=== PATIENT | male | born 1950 | race Caucasian/White ===

== ENCOUNTER 2018-11-17 19:54 | Observation (INO) ==
[2018-11-17 20:32] LABS: Basophils # 0.1 10*3/uL (0.0-0.2); Basophils % 0.8 % (0.0-0.8); Eosinophils # 0.3 10*3/uL (0.0-0.87); Eosinophils % 2.9 % (0.00-10.9); Hematocrit 37.7 VOL% (42.0-52.0); Hemoglobin 11.6 GM/DL (14.0-18.0); Immature Granulocytes % 0.7 %; Immature Granulocytes Absolute 0.06 #; Lymphocytes # 2.3 10*3/uL (1.4-4.0); Lymphocytes % 27.2 % (21.2-54.2); Mean Corpuscular HGB Conc 30.8 GM/DL (32-36); Mean Corpuscular Volume 91.5 FL (87-102); Monocytes % 8.5 % (1.7-12.7); Neutrophils % 59.9 % (38.7-73.9); Platelet Count 215 T/CUMM (130-400); Red Blood Count 4.12 MC/CUMM (3.8-5.5); Red Cell Distribution Width 13.7 % (9.3-17.3); White Blood Count 8.5 T/CUMM (4-12)
[2018-11-17 20:49] LABS: Alanine Aminotransferase < 9 U/L (16-61); Alkaline Phosphatase 116 U/L (45-117); Aspartate Amino Transferase 9 U/L (0-37); Blood Urea Nitrogen 43 MG/DL (7-18); Calcium 8.6 MG/DL (8.5-10.1); Glucose 243 MG/DL (74-106); Osmolality,Calculated 293.7 MOS/KG (273-304); Total Protein 6.3 G/DL (6.4-8.3)
[2018-11-17] MEDS ORDERED: ONDANSETRON 4 MG/2 ML VIAL IV PRN (23:24)
[2018-11-17] MEDS ORDERED: SODIUM CHLORIDE 0.9% 1,000 ML IV SCH (23:24)
[2018-11-17] MEDS ORDERED: DEXTROSE 50% 25 GM/50 ML VIAL IV PRN (23:24)
[2018-11-17] MEDS ORDERED: GLUCAGON 1 MG VIAL IM PRN (23:24)
[2018-11-17] MEDS ORDERED: ACETAMINOPHEN 325 MG TABLET PO PRN (23:24)
[2018-11-17] MEDS: ENOXAPARIN 40 MG/0.4 ML SYRINGE SUBCUT SCH (23:38)
[2018-11-17] MEDS: CIPROFLOXACIN 500 MG TABLET PO SCH (23:38)
[2018-11-17] MEDS: INSULIN LISPRO 100 UNIT/ML SUBCUT SCH (23:46)
[2018-11-18] MEDS ORDERED: [UNRECOGNIZED DRUG - OTHER] IV SCH (05:00)
[2018-11-18 05:31] LABS: Basophils # 0.1 10*3/uL (0.0-0.2); Eosinophils # 0.3 10*3/uL (0.0-0.87); Eosinophils % 3.3 % (0.00-10.9); Hematocrit 35.5 VOL% (42.0-52.0); Immature Granulocytes % 0.6 %; Immature Granulocytes Absolute 0.05 #; Lymphocytes # 2.9 10*3/uL (1.4-4.0); Lymphocytes % 36.8 % (21.2-54.2); Mean Platelet Volume 10.1 FL (9.6-12.0); Monocytes % 8.7 % (1.7-12.7); Neutrophils % 49.6 % (38.7-73.9); Platelet Count 202 T/CUMM (130-400); Red Blood Count 3.86 MC/CUMM (3.8-5.5); Red Cell Distribution Width 13.9 % (9.3-17.3)
[2018-11-18 05:55] LABS: Calcium 8.5 MG/DL (8.5-10.1); Osmolality,Calculated 290.5 MOS/KG (273-304)
[2018-11-18] MEDS: INSULIN LISPRO 100 UNIT/ML SUBCUT SCH ×4 (09:16→20:33)
[2018-11-18] MEDS: ATORVASTATIN 40 MG TABLET PO SCH (09:17)
[2018-11-18] MEDS: INSULIN GLARGINE 100 UNIT/ML SUBCUT SCH (09:17)
[2018-11-18] MEDS: ASPIRIN EC 81 MG TABLET PO SCH (09:17)
[2018-11-18] MEDS: CIPROFLOXACIN 500 MG TABLET PO SCH ×2 (09:17→20:53)
[2018-11-18] MEDS: TAMSULOSIN 0.4 MG CAPSULE PO SCH (09:18)
[2018-11-18] MEDS: SODIUM CHLORIDE 0.9% 1,000 ML IV SCH ×2 (09:20→20:53)
[2018-11-18] MEDS: ENOXAPARIN 40 MG/0.4 ML SYRINGE SUBCUT SCH (20:53)
[2018-11-19 06:04] LABS: Basophils # 0.1 10*3/uL (0.0-0.2); Basophils % 0.9 % (0.0-0.8); Eosinophils # 0.3 10*3/uL (0.0-0.87); Eosinophils % 3.3 % (0.00-10.9); Hematocrit 37.3 VOL% (42.0-52.0); Hemoglobin 11.6 GM/DL (14.0-18.0); Immature Granulocytes % 0.9 %; Immature Granulocytes Absolute 0.07 #; Lymphocytes # 2.2 10*3/uL (1.4-4.0); Lymphocytes % 29.4 % (21.2-54.2); Mean Corpuscular HGB Conc 31.1 GM/DL (32-36); Monocytes % 8.8 % (1.7-12.7); Neutrophils % 56.7 % (38.7-73.9); Platelet Count 191 T/CUMM (130-400); Red Cell Distribution Width 13.7 % (9.3-17.3); White Blood Count 7.5 T/CUMM (4-12)
[2018-11-19 06:16] LABS: Calcium 8.9 MG/DL (8.5-10.1); Osmolality,Calculated 284.5 MOS/KG (273-304)
[2018-11-19] MEDS ORDERED: SODIUM POLYSTYRENE SULFATE 15 GM/60 ML BOTTLE PO STA (07:10)
[2018-11-19 07:47] VITALS: BP 159/96
[2018-11-19] MEDS: INSULIN GLARGINE 100 UNIT/ML SUBCUT SCH (09:00)
[2018-11-19] MEDS: ASPIRIN EC 81 MG TABLET PO SCH (09:00)
[2018-11-19] MEDS: ATORVASTATIN 40 MG TABLET PO SCH (09:00)
[2018-11-19] MEDS: TAMSULOSIN 0.4 MG CAPSULE PO SCH (09:00)
[2018-11-19] MEDS: CIPROFLOXACIN 500 MG TABLET PO SCH (09:01)
[2018-11-19] MEDS: INSULIN LISPRO 100 UNIT/ML SUBCUT SCH (09:01)
== END 2018-11-19 10:48 | disposition home or self-care (01) ==
LOC: N.ED 19:54 → N.EDINP 19:54 → N.2E 22:16
PROVIDERS: ADMIT Internal Medicine; ATTEND Internal Medicine

== ENCOUNTER 2019-01-26 20:08 | Inpatient (IN) ==
[2019-01-27 01:09] LABS: Basophils # 0.1 10*3/uL (0.0-0.2); Basophils % 0.4 % (0.0-0.8); Eosinophils # 0.1 10*3/uL (0.0-0.87); Eosinophils % 0.2 % (0.00-10.9); Hemoglobin 10.1 GM/DL (14.0-18.0); Immature Granulocytes % 4.5 %; Immature Granulocytes Absolute 1.12 #; Lymphocytes % 3.8 % (21.2-54.2); Mean Corpuscular HGB Conc 33.7 GM/DL (32-36); Mean Platelet Volume 12.3 FL (9.6-12.0); Monocytes % 4.9 % (1.7-12.7); Neutrophils % 86.2 % (38.7-73.9); Platelet Count 158 T/CUMM (130-400); Red Blood Count 3.57 MC/CUMM (3.8-5.5); Red Cell Distribution Width 15.5 % (9.3-17.3); White Blood Count 25.1 T/CUMM (4-12)
[2019-01-27] MEDS ORDERED: CEFEPIME 2,000 MG in SODIUM CHLORIDE 0.9% 100 ML IV STA (01:21)
[2019-01-27 01:42] LABS: Band Neutrophils 1 % (0-10); Lymphocytes 4 % (20-55); Myelocytes 1 %; Segmented Neutrophils 91 % (50-85); Total Cells Counted 100
[2019-01-27 01:43] LABS: Anisocytosis Slight; Microcytosis 1+
[2019-01-27 01:44] LABS: Hypochromasia Slight
[2019-01-27 01:45] LABS: Polychromasia Slight
[2019-01-27] MEDS: CEFEPIME 2,000 MG in SODIUM CHLORIDE 0.9% 100 ML IV STA ×2 (01:45→03:18)
[2019-01-27 01:46] LABS: Platelet Estimate Normal
[2019-01-27 01:49] LABS: Albumin 1.5 G/DL (3.4-5.0); Bilirubin,Total 9.6 MG/DL (0.2-1.0); Calcium 8.2 MG/DL (8.5-10.1); Osmolality,Calculated 290.5 MOS/KG (273-304); Total Protein 5.7 G/DL (6.4-8.3)
[2019-01-27] MEDS ORDERED: SODIUM CHLORIDE 0.9% 2,000 ML IV STA (02:02)
[2019-01-27 02:17] LABS: Sedimentation Rate-Westergren 88 MM/HR (0-20)
[2019-01-27] MEDS: VANCOMYCIN INJ 1,000 MG in SODIUM CHLORIDE 0.9% 250 ML IV STA ×2 (02:20→03:30)
[2019-01-27 03:33] LABS: Apearance,Urine CLOUDY (Clear); Bacteria,Urine Many /HPF (Few); Blood, Urine Moderate mg/dL (Negative); Glucose,Urine (UA) 50 mg/dL (Negative); Ketones,Urine Negative (Negative); Nitrite,Urine Negative (Negative); Protein,Urine 30 MG/DL; RBC,Urine 29 /HPF (0-4); Squamous Epithelial Cell,Urine Occasional /HPF (0-10); Urine Color Amber (Yellow); Urine Specific Gravity 1.013 (1.001-1.035); WBC,Urine 324 /HPF (0-6)
[2019-01-27 03:35] LABS: Bilirubin,Urine Moderate mg/dL (Negative)
[2019-01-27] MEDS ORDERED: ONDANSETRON 4 MG/2 ML VIAL IV PRN (05:55)
[2019-01-27] MEDS ORDERED: GLUCAGON 1 MG VIAL IM PRN (06:02)
[2019-01-27] MEDS ORDERED: DEXTROSE 50% 25 GM/50 ML VIAL IV PRN (06:02)
[2019-01-27 08:58] LABS: Barbiturates Screen,Urine Negative (Negative); Benzodiazepines Screen,Urine Negative (Negative); Cannabinoid Screen,Urine Negative (Negative); Opiate Screen,Urine Negative (Negative); Phencyclidine Screen,Urine Negative (Negative)
[2019-01-27] MEDS ORDERED: PROPOFOL 200 MG/20 ML VIAL IV ONE (10:00)
[2019-01-27] MEDS ORDERED: LIDOCAINE 2% 5 ML VIAL ONE (10:00)
[2019-01-27] MEDS ORDERED: fentaNYL 100 MCG/2 ML VIAL ONE ×2 (10:00→12:03)
[2019-01-27] MEDS ORDERED: PHENYLEPHRINE 1 MG/10 ML SYRINGE IV ONE (10:00)
[2019-01-27] MEDS ORDERED: ROCURONIUM 100 MG/10 ML VIAL IV ONE (10:00)
[2019-01-27] MEDS ORDERED: SEVOFLURANE 1 UNIT/15 MINUTE INH ONE ×2 (10:00→13:32)
[2019-01-27] MEDS ORDERED: GLYCOPYRROLATE 0.4 MG/2 ML VIAL ONE (10:00)
[2019-01-27] MEDS: SODIUM CHLORIDE 0.9% 1,000 ML IV SCH ×3 (11:34→23:30)
[2019-01-27] MEDS: CEFEPIME 1,000 MG in SODIUM CHLORIDE 0.9% 100 ML IV SCH ×2 (11:35→18:00)
[2019-01-27] MEDS: SODIUM HYPOCHLORITE 0.25% IRRIG 473 ML BOTTLE TOP SCH (11:35)
[2019-01-27 11:50] LABS: INR 1.1; PT Patient Result 11.4 SECS (9.6-12.2)
[2019-01-27] MEDS ORDERED: INDOMETHACIN SUPP 50 MG SUPP RECTAL ONE (12:13)
[2019-01-27] MEDS ORDERED: SUGAMMADEX 200 MG/2 ML VIAL IV ONE (13:05)
[2019-01-27] MEDS: INSULIN REGULAR 100 UNIT/ML SUBCUT SCH ×4 (13:22→21:27)
[2019-01-27 14:40] LABS: Hepatitis B Surface Ag Quant < 0.10 Index; Hepatitis B Surface Ag Result Negative (Negative); Hepatitis C Virus Ab Quant 0.08 Index; Hepatitis C Virus Ab Result Negative (Negative)
[2019-01-28] MEDS: CEFEPIME 1,000 MG in SODIUM CHLORIDE 0.9% 100 ML IV SCH ×3 (03:37→18:06)
[2019-01-28 05:02] LABS: Basophils # 0.1 10*3/uL (0.0-0.2); Basophils % 0.4 % (0.0-0.8); Eosinophils # 0.2 10*3/uL (0.0-0.87); Eosinophils % 1.4 % (0.00-10.9); Hematocrit 27.2 VOL% (42.0-52.0); Hemoglobin 8.9 GM/DL (14.0-18.0); Immature Granulocytes % 6.5 %; Immature Granulocytes Absolute 1.06 #; Lymphocytes # 1.1 10*3/uL (1.4-4.0); Lymphocytes % 6.5 % (21.2-54.2); Mean Corpuscular HGB Conc 32.7 GM/DL (32-36); Mean Corpuscular Volume 86.3 FL (87-102); Mean Platelet Volume 11.3 FL (9.6-12.0); Monocytes % 4.6 % (1.7-12.7); Neutrophils % 80.6 % (38.7-73.9); Platelet Count 194 T/CUMM (130-400); Red Blood Count 3.15 MC/CUMM (3.8-5.5); Red Cell Distribution Width 16.4 % (9.3-17.3); White Blood Count 16.2 T/CUMM (4-12)
[2019-01-28 05:33] LABS: Albumin 1.3 G/DL (3.4-5.0); Bilirubin,Total 8.9 MG/DL (0.2-1.0); Calcium 7.4 MG/DL (8.5-10.1); Osmolality,Calculated 294.8 MOS/KG (273-304); Total Protein 5.1 G/DL (6.4-8.3)
[2019-01-28 06:01] LABS: Lymphocytes 12 % (20-55); Segmented Neutrophils 85 % (50-85)
[2019-01-28 06:04] LABS: Anisocytosis 1+; Hypochromasia 1+; Target Cells 1+; Total Cells Counted 100
[2019-01-28] MEDS: VANCOMYCIN INJ 1,250 MG in SODIUM CHLORIDE 0.9% 250 ML IV SCH (06:32)
[2019-01-28] MEDS ORDERED: FAMOTIDINE 20 MG TABLET PO ONE (07:33)
[2019-01-28] MEDS: INSULIN REGULAR 100 UNIT/ML SUBCUT SCH ×4 (07:52→20:43)
[2019-01-28] MEDS: SODIUM CHLORIDE 0.9% 1,000 ML IV SCH ×4 (07:56→20:40)
[2019-01-28] MEDS ORDERED: LIDOCAINE 1% 20 ML VIAL ONE (08:19)
[2019-01-28] MEDS ORDERED: HYDROmorphone 2 MG/1 ML VIAL IV PRN (09:06)
[2019-01-28] MEDS ORDERED: ONDANSETRON 4 MG/2 ML VIAL IV PRN (09:06)
[2019-01-28] MEDS ORDERED: LIDOCAINE 2% 5 ML VIAL ONE (09:30)
[2019-01-28] MEDS ORDERED: PROPOFOL 200 MG/20 ML VIAL IV ONE (09:30)
[2019-01-28] MEDS ORDERED: ALBUMIN 5% 12.5 GM/250 ML VIAL IV ONE (09:31)
[2019-01-28] MEDS ORDERED: SODIUM CHLORIDE 0.9% 100 ML IV ONE (09:31)
[2019-01-28] MEDS ORDERED: SEVOFLURANE 1 UNIT/15 MINUTE INH ONE (09:31)
[2019-01-28] MEDS ORDERED: MIDAZOLAM 2 MG/2 ML VIAL ONE (09:31)
[2019-01-28] MEDS ORDERED: PHENYLEPHRINE 10 MG/1 ML VIAL IV ONE (09:31)
[2019-01-28] MEDS ORDERED: SODIUM CHLORIDE 0.9% 1,000 ML IV ONE (09:31)
[2019-01-28] MEDS ORDERED: GLUCAGON 1 MG VIAL IM PRN (10:37)
[2019-01-28] MEDS ORDERED: DEXTROSE 50% 25 GM/50 ML VIAL IV PRN (10:37)
[2019-01-28] MEDS: SODIUM HYPOCHLORITE 0.25% IRRIG 473 ML BOTTLE TOP SCH (10:39)
[2019-01-28] MEDS ORDERED: ALUMINUM/MAGNES/SIMETH MAX STR 30 ML UDCUP PO PRN (20:32)
[2019-01-29] MEDS: CEFEPIME 1,000 MG in SODIUM CHLORIDE 0.9% 100 ML IV SCH (03:25)
[2019-01-29] MEDS: SODIUM CHLORIDE 0.9% 1,000 ML IV SCH ×3 (05:52→17:31)
[2019-01-29] MEDS: VANCOMYCIN INJ 1,250 MG in SODIUM CHLORIDE 0.9% 250 ML IV SCH (05:52)
[2019-01-29 06:16] LABS: Basophils # 0.1 10*3/uL (0.0-0.2); Basophils % 0.4 % (0.0-0.8); Eosinophils # 0.2 10*3/uL (0.0-0.87); Eosinophils % 1.1 % (0.00-10.9); Hemoglobin 8.4 GM/DL (14.0-18.0); Immature Granulocytes % 7.2 %; Lymphocytes # 1.2 10*3/uL (1.4-4.0); Lymphocytes % 6.1 % (21.2-54.2); Mean Corpuscular HGB Conc 32.3 GM/DL (32-36); Mean Corpuscular Volume 85.5 FL (87-102); Mean Platelet Volume 12.6 FL (9.6-12.0); Monocytes % 5.1 % (1.7-12.7); Neutrophils % 80.1 % (38.7-73.9); Platelet Count 175 T/CUMM (130-400); Red Blood Count 3.04 MC/CUMM (3.8-5.5); Red Cell Distribution Width 16.9 % (9.3-17.3); White Blood Count 19.4 T/CUMM (4-12)
[2019-01-29 06:38] LABS: Calcium 7.5 MG/DL (8.5-10.1); Osmolality,Calculated 299.1 MOS/KG (273-304)
[2019-01-29 06:56] LABS: Band Neutrophils 2 % (0-10); Eosinophils 2 % (0-10); Lymphocytes 7 % (20-55); Myelocytes 2 %
[2019-01-29 06:58] LABS: Metamyelocytes 1 %; Total Cells Counted 100
[2019-01-29 07:05] LABS: Segmented Neutrophils 79 % (50-85)
[2019-01-29 07:06] LABS: Acanthocytes Few; Anisocytosis 1+; Hypochromasia 1+; Platelet Estimate Adequate; Target Cells Few
[2019-01-29] MEDS ORDERED: GLUCAGON 1 MG VIAL IM PRN (08:58)
[2019-01-29] MEDS ORDERED: DEXTROSE 10% 25 GM/250 ML BAG IV PRN (08:58)
[2019-01-29] MEDS: INSULIN REGULAR 100 UNIT/ML SUBCUT SCH ×4 (09:12→22:07)
[2019-01-29] MEDS: SODIUM HYPOCHLORITE 0.25% IRRIG 473 ML BOTTLE TOP SCH (09:14)
[2019-01-29] MEDS: CEFEPIME 2,000 MG in SODIUM CHLORIDE 0.9% 100 ML IV SCH ×2 (11:34→19:21)
[2019-01-29 12:46] LABS: Albumin 1.4 G/DL (3.4-5.0); Bilirubin,Direct 5.85 MG/DL (0.0-0.20); Bilirubin,Indirect 1.1 MG/DL (0.0-1.0); Bilirubin,Total 6.9 MG/DL (0.2-1.0); Total Protein 5.4 G/DL (6.4-8.3)
[2019-01-30] MEDS: CEFEPIME 2,000 MG in SODIUM CHLORIDE 0.9% 100 ML IV SCH (03:23)
[2019-01-30 05:36] LABS: Basophils # 0.1 10*3/uL (0.0-0.2); Basophils % 0.3 % (0.0-0.8); Eosinophils # 0.1 10*3/uL (0.0-0.87); Eosinophils % 0.2 % (0.00-10.9); Hematocrit 25.7 VOL% (42.0-52.0); Hemoglobin 8.2 GM/DL (14.0-18.0); Immature Granulocytes Absolute 1.55 #; Lymphocytes # 1.2 10*3/uL (1.4-4.0); Lymphocytes % 3.9 % (21.2-54.2); Mean Corpuscular HGB Conc 31.9 GM/DL (32-36); Mean Corpuscular Volume 86.2 FL (87-102); Mean Platelet Volume 12.3 FL (9.6-12.0); Monocytes % 5.2 % (1.7-12.7); Neutrophils % 85.4 % (38.7-73.9); Platelet Count 223 T/CUMM (130-400); Red Blood Count 2.98 MC/CUMM (3.8-5.5); Red Cell Distribution Width 17.3 % (9.3-17.3); White Blood Count 30.8 T/CUMM (4-12)
[2019-01-30 05:56] LABS: Band Neutrophils 2 % (0-10); Hypochromasia 1+; Lymphocytes 4 % (20-55); Platelet Estimate Adequate; Segmented Neutrophils 89 % (50-85); Total Cells Counted 100
[2019-01-30 06:09] LABS: Albumin 1.3 G/DL (3.4-5.0); Bilirubin,Total 7.4 MG/DL (0.2-1.0); Calcium 7.9 MG/DL (8.5-10.1); Osmolality,Calculated 293.8 MOS/KG (273-304); Total Protein 5.2 G/DL (6.4-8.3)
[2019-01-30] MEDS: SODIUM CHLORIDE 0.9% 1,000 ML IV SCH ×2 (06:14→12:22)
[2019-01-30] MEDS: VANCOMYCIN INJ 1,250 MG in SODIUM CHLORIDE 0.9% 250 ML IV SCH (06:14)
[2019-01-30] MEDS ORDERED: LIDOCAINE 1% 5 ML VIAL ONE (08:21)
[2019-01-30] MEDS ORDERED: MIDAZOLAM 2 MG/2 ML VIAL ONE (08:21)
[2019-01-30] MEDS ORDERED: DEXAMETHASONE 4 MG/1 ML VIAL ONE (08:21)
[2019-01-30] MEDS ORDERED: BUPIVACAINE 0.5% 50 ML VIAL ONE (08:21)
[2019-01-30] MEDS ORDERED: fentaNYL 100 MCG/2 ML VIAL ONE ×2 (08:21→10:40)
[2019-01-30] MEDS ORDERED: EPINEPHrine 1 MG/ML VIAL ONE (08:21)
[2019-01-30] MEDS ORDERED: CEFEPIME 1,000 MG in SODIUM CHLORIDE 0.9% 100 ML IV SCH (09:00)
[2019-01-30] MEDS ORDERED: PROPOFOL 200 MG/20 ML VIAL IV ONE (10:39)
[2019-01-30] MEDS ORDERED: PHENYLEPHRINE DRIP 20 MG/250 ML PREMIX IV ONE (10:39)
[2019-01-30] MEDS ORDERED: SEVOFLURANE 1 UNIT/15 MINUTE INH ONE (10:39)
[2019-01-30] MEDS ORDERED: LIDOCAINE 100 MG/5 ML SYRINGE ONE (10:39)
[2019-01-30] MEDS ORDERED: ePHEDrine 50 MG/ML AMP ONE (10:41)
[2019-01-30] MEDS ORDERED: PHENYLEPHRINE 1 MG/10 ML SYRINGE IV ONE (10:41)
[2019-01-30] MEDS ORDERED: ROCURONIUM 100 MG/10 ML VIAL IV ONE (10:41)
[2019-01-30] MEDS ORDERED: ONDANSETRON 4 MG/2 ML VIAL ONE (10:42)
[2019-01-30] MEDS ORDERED: NEOSTIGMINE 10 MG/10 ML VIAL ONE (10:42)
[2019-01-30] MEDS ORDERED: GLYCOPYRROLATE 0.4 MG/2 ML VIAL ONE (10:42)
[2019-01-30] MEDS: INSULIN REGULAR 100 UNIT/ML SUBCUT SCH ×3 (11:41→23:58)
[2019-01-30] MEDS ORDERED: DEXTROSE 50% 25 GM/50 ML VIAL IV PRN (11:42)
[2019-01-30] MEDS ORDERED: GLUCAGON 1 MG VIAL IM PRN (11:42)
[2019-01-30] MEDS: PIPERACILLIN/TAZOBACTAM 3,375 MG in SODIUM CHLORIDE 0.9% 100 ML IV SCH ×2 (15:43→23:59)
[2019-01-30] MEDS: SODIUM HYPOCHLORITE 0.25% IRRIG 473 ML BOTTLE TOP SCH (20:18)
[2019-01-31] MEDS: MORPHINE 4 MG/1 ML VIAL IV PRN ×3 (03:56→20:53)
[2019-01-31] MEDS: VANCOMYCIN INJ 1,250 MG in SODIUM CHLORIDE 0.9% 250 ML IV SCH (05:45)
[2019-01-31 06:07] LABS: Basophils # 0.2 10*3/uL (0.0-0.2); Basophils % 0.4 % (0.0-0.8); Hematocrit 21.7 VOL% (42.0-52.0); Hemoglobin 7.1 GM/DL (14.0-18.0); Immature Granulocytes % 4.9 %; Lymphocytes # 1.1 10*3/uL (1.4-4.0); Lymphocytes % 2.3 % (21.2-54.2); Mean Corpuscular HGB Conc 32.7 GM/DL (32-36); Mean Corpuscular Volume 86.8 FL (87-102); Mean Platelet Volume 11.1 FL (9.6-12.0); Monocytes % 3.5 % (1.7-12.7); Neutrophils % 88.9 % (38.7-73.9); Platelet Count 267 T/CUMM (130-400); Red Cell Distribution Width 18.1 % (9.3-17.3)
[2019-01-31] MEDS: SODIUM CHLORIDE 0.9% 1,000 ML IV SCH ×5 (06:08→23:30)
[2019-01-31 06:10] LABS: White Blood Count 46.6 T/CUMM (4-12)
[2019-01-31 06:30] LABS: Bilirubin,Total 7.8 MG/DL (0.2-1.0); Calcium 7.5 MG/DL (8.5-10.1); Osmolality,Calculated 295.3 MOS/KG (273-304); Total Protein 4.9 G/DL (6.4-8.3)
[2019-01-31 06:37] LABS: Hypochromasia 1+; Lymphocytes 2 % (20-55); Platelet Estimate Adequate; Segmented Neutrophils 94 % (50-85); Total Cells Counted 100
[2019-01-31] MEDS ORDERED: SODIUM CHLORIDE 0.9% 1,000 ML IV PRN (09:26)
[2019-01-31] MEDS: SODIUM HYPOCHLORITE 0.25% IRRIG 473 ML BOTTLE TOP SCH (10:19)
[2019-01-31] MEDS: MEROPENEM 500 MG in SODIUM CHLORIDE 0.9% 100 ML IV SCH ×2 (10:27→17:21)
[2019-01-31] MEDS: INSULIN REGULAR 100 UNIT/ML SUBCUT SCH ×5 (10:33→22:41)
[2019-01-31] MEDS: PIPERACILLIN/TAZOBACTAM 3,375 MG in SODIUM CHLORIDE 0.9% 100 ML IV SCH (10:34)
[2019-01-31] MEDS ORDERED: ONDANSETRON 4 MG/2 ML VIAL ONE (10:54)
[2019-01-31 12:42] LABS: Apearance,Urine CLOUDY (Clear); Blood, Urine Moderate mg/dL (Negative); Glucose,Urine (UA) 50 mg/dL (Negative); Ketones,Urine Negative (Negative); Nitrite,Urine Negative (Negative); Protein,Urine 30 MG/DL; RBC,Urine 18 /HPF (0-4); Squamous Epithelial Cell,Urine Occasional /HPF (0-10); Urine Color Amber (Yellow); Urine Specific Gravity 1.016 (1.001-1.035); WBC,Urine 51 /HPF (0-6)
[2019-01-31 12:44] LABS: Bilirubin,Urine Moderate mg/dL (Negative)
[2019-01-31 18:29] LABS: Hematocrit 25.1 VOL% (42.0-52.0); Hemoglobin 8.3 GM/DL (14.0-18.0)
[2019-02-01] MEDS: MEROPENEM 500 MG in SODIUM CHLORIDE 0.9% 100 ML IV SCH ×3 (02:15→17:26)
[2019-02-01 05:05] LABS: Basophils # 0.1 10*3/uL (0.0-0.2); Basophils % 0.2 % (0.0-0.8); Eosinophils % 0.1 % (0.00-10.9); Hematocrit 26.1 VOL% (42.0-52.0); Hemoglobin 8.4 GM/DL (14.0-18.0); Immature Granulocytes Absolute 1.16 #; Lymphocytes # 1.3 10*3/uL (1.4-4.0); Lymphocytes % 4.4 % (21.2-54.2); Mean Corpuscular HGB Conc 32.2 GM/DL (32-36); Mean Corpuscular Volume 88.5 FL (87-102); Mean Platelet Volume 10.8 FL (9.6-12.0); Monocytes % 2.6 % (1.7-12.7); Neutrophils % 88.7 % (38.7-73.9); Platelet Count 262 T/CUMM (130-400); Red Blood Count 2.95 MC/CUMM (3.8-5.5); Red Cell Distribution Width 18.2 % (9.3-17.3); White Blood Count 28.9 T/CUMM (4-12)
[2019-02-01 05:38] LABS: Bilirubin,Total 7.7 MG/DL (0.2-1.0); Calcium 7.7 MG/DL (8.5-10.1); Osmolality,Calculated 300.7 MOS/KG (273-304); Total Protein 4.8 G/DL (6.4-8.3)
[2019-02-01 05:46] LABS: Hypochromasia 1+; Lymphocytes 5 % (20-55); Platelet Estimate Adequate; Segmented Neutrophils 91 % (50-85); Total Cells Counted 100
[2019-02-01] MEDS: VANCOMYCIN INJ 1,250 MG in SODIUM CHLORIDE 0.9% 250 ML IV SCH (07:17)
[2019-02-01] MEDS: SODIUM CHLORIDE 0.9% 1,000 ML IV SCH ×5 (07:39→23:13)
[2019-02-01] MEDS: INSULIN REGULAR 100 UNIT/ML SUBCUT SCH ×4 (07:45→21:57)
[2019-02-01] MEDS ORDERED: DEXTROSE 50% 25 GM/50 ML VIAL IV PRN (08:00)
[2019-02-01] MEDS: MORPHINE 4 MG/1 ML VIAL IV PRN ×4 (09:46→23:59)
[2019-02-01] MEDS: SODIUM HYPOCHLORITE 0.25% IRRIG 473 ML BOTTLE TOP SCH (09:46)
[2019-02-01 14:00] LABS: Antinuclear Ab, S 0.9 U; Cyclic Citrull Peptide Ab Mayo < 15.6 U
[2019-02-02] MEDS: HYDROmorphone 2 MG/1 ML VIAL IV PRN ×7 (01:04→23:00)
[2019-02-02] MEDS: MEROPENEM 500 MG in SODIUM CHLORIDE 0.9% 100 ML IV SCH ×3 (01:11→17:05)
[2019-02-02] MEDS: SODIUM CHLORIDE 0.9% 1,000 ML IV SCH ×3 (03:20→17:04)
[2019-02-02 04:45] LABS: Basophils # 0.1 10*3/uL (0.0-0.2); Basophils % 0.3 % (0.0-0.8); Eosinophils # 0.1 10*3/uL (0.0-0.87); Eosinophils % 0.3 % (0.00-10.9); Hematocrit 27.4 VOL% (42.0-52.0); Hemoglobin 8.7 GM/DL (14.0-18.0); Immature Granulocytes % 4.3 %; Immature Granulocytes Absolute 0.87 #; Lymphocytes # 1.3 10*3/uL (1.4-4.0); Lymphocytes % 6.2 % (21.2-54.2); Mean Corpuscular HGB Conc 31.8 GM/DL (32-36); Mean Platelet Volume 11.2 FL (9.6-12.0); Monocytes % 2.8 % (1.7-12.7); Neutrophils % 86.1 % (38.7-73.9); Platelet Count 210 T/CUMM (130-400); Red Blood Count 3.08 MC/CUMM (3.8-5.5); Red Cell Distribution Width 18.7 % (9.3-17.3); White Blood Count 20.4 T/CUMM (4-12)
[2019-02-02 05:10] LABS: Band Neutrophils 1 % (0-10); Lymphocytes 7 % (20-55); Segmented Neutrophils 90 % (50-85); Total Cells Counted 100
[2019-02-02 05:11] LABS: Hypochromasia 1+
[2019-02-02 05:12] LABS: Microcytosis Slight; Polychromasia Slight
[2019-02-02 05:29] LABS: Albumin 0.9 G/DL (3.4-5.0); Bilirubin,Total 6.2 MG/DL (0.2-1.0); Osmolality,Calculated 308.3 MOS/KG (273-304); Total Protein 5.1 G/DL (6.4-8.3)
[2019-02-02] MEDS: INSULIN REGULAR 100 UNIT/ML SUBCUT SCH ×4 (06:52→22:27)
[2019-02-02] MEDS: SODIUM HYPOCHLORITE 0.25% IRRIG 473 ML BOTTLE TOP SCH (11:00)
[2019-02-03] MEDS: SODIUM CHLORIDE 0.9% 1,000 ML IV SCH ×2 (01:47→08:11)
[2019-02-03] MEDS: MEROPENEM 500 MG in SODIUM CHLORIDE 0.9% 100 ML IV SCH ×3 (01:49→17:44)
[2019-02-03] MEDS: HYDROmorphone 2 MG/1 ML VIAL IV PRN ×2 (01:54→04:57)
[2019-02-03 04:19] LABS: Basophils # 0.1 10*3/uL (0.0-0.2); Basophils % 0.5 % (0.0-0.8); Eosinophils # 0.1 10*3/uL (0.0-0.87); Eosinophils % 0.4 % (0.00-10.9); Hematocrit 26.9 VOL% (42.0-52.0); Hemoglobin 8.5 GM/DL (14.0-18.0); Immature Granulocytes % 4.2 %; Immature Granulocytes Absolute 0.59 #; Lymphocytes # 1.1 10*3/uL (1.4-4.0); Lymphocytes % 7.5 % (21.2-54.2); Mean Corpuscular HGB Conc 31.6 GM/DL (32-36); Mean Corpuscular Volume 89.1 FL (87-102); Mean Platelet Volume 10.9 FL (9.6-12.0); Monocytes % 3.3 % (1.7-12.7); Neutrophils % 84.1 % (38.7-73.9); Platelet Count 253 T/CUMM (130-400); Red Blood Count 3.02 MC/CUMM (3.8-5.5); Red Cell Distribution Width 18.9 % (9.3-17.3); White Blood Count 14.2 T/CUMM (4-12)
[2019-02-03 04:52] LABS: Hypochromasia 1+; Lymphocytes 4 % (20-55); Microcytosis 1+; Platelet Estimate Normal; Polychromasia Few; Segmented Neutrophils 93 % (50-85); Target Cells Few; Total Cells Counted 100
[2019-02-03] MEDS: INSULIN REGULAR 100 UNIT/ML SUBCUT SCH ×3 (07:21→17:49)
[2019-02-03] MEDS: SODIUM HYPOCHLORITE 0.25% IRRIG 473 ML BOTTLE TOP SCH (10:17)
[2019-02-03] MEDS: DEXTROSE 10% 1,000 ML IV SCH ×2 (11:40→20:01)
[2019-02-03 13:19] LABS: INR 1.1; PT Patient Result 12.2 SECS (9.6-12.2)
[2019-02-03] MEDS ORDERED: ACETAMINOPHEN 650 MG SUPP RECTAL ONE ×2 (22:22→23:19)
[2019-02-04] MEDS: INSULIN REGULAR 100 UNIT/ML SUBCUT SCH ×4 (00:22→18:26)
[2019-02-04] MEDS: MEROPENEM 500 MG in SODIUM CHLORIDE 0.9% 100 ML IV SCH ×3 (02:09→18:24)
[2019-02-04] MEDS: DEXTROSE 10% 1,000 ML IV SCH ×2 (04:57→12:04)
[2019-02-04 05:20] LABS: Basophils # 0.1 10*3/uL (0.0-0.2); Basophils % 0.6 % (0.0-0.8); Eosinophils # 0.2 10*3/uL (0.0-0.87); Eosinophils % 1.3 % (0.00-10.9); Hematocrit 24.5 VOL% (42.0-52.0); Hemoglobin 7.8 GM/DL (14.0-18.0); Immature Granulocytes % 3.7 %; Immature Granulocytes Absolute 0.43 #; Lymphocytes # 1.2 10*3/uL (1.4-4.0); Lymphocytes % 10.4 % (21.2-54.2); Mean Corpuscular HGB Conc 31.8 GM/DL (32-36); Mean Corpuscular Volume 90.1 FL (87-102); Mean Platelet Volume 10.4 FL (9.6-12.0); Monocytes % 4.3 % (1.7-12.7); Neutrophils % 79.7 % (38.7-73.9); Platelet Count 240 T/CUMM (130-400); Red Blood Count 2.72 MC/CUMM (3.8-5.5); Red Cell Distribution Width 18.4 % (9.3-17.3); White Blood Count 11.6 T/CUMM (4-12)
[2019-02-04 06:00] LABS: Albumin 0.9 G/DL (3.4-5.0); Bilirubin,Total 4.5 MG/DL (0.2-1.0); Calcium 7.8 MG/DL (8.5-10.1); Total Protein 5.1 G/DL (6.4-8.3)
[2019-02-04] MEDS ORDERED: VANCOMYCIN INJ 1,250 MG in SODIUM CHLORIDE 0.9% 250 ML IV SCH (09:00)
[2019-02-04] MEDS: SODIUM HYPOCHLORITE 0.25% IRRIG 473 ML BOTTLE TOP SCH (09:33)
[2019-02-05] MEDS: DEXTROSE 10% 1,000 ML IV SCH ×4 (00:39→15:52)
[2019-02-05] MEDS: MEROPENEM 500 MG in SODIUM CHLORIDE 0.9% 100 ML IV SCH ×3 (00:59→17:25)
[2019-02-05] MEDS: INSULIN REGULAR 100 UNIT/ML SUBCUT SCH ×4 (01:00→18:32)
[2019-02-05 05:50] LABS: Basophils # 0.1 10*3/uL (0.0-0.2); Basophils % 0.4 % (0.0-0.8); Eosinophils # 0.2 10*3/uL (0.0-0.87); Eosinophils % 1.8 % (0.00-10.9); Hematocrit 24.4 VOL% (42.0-52.0); Hemoglobin 7.6 GM/DL (14.0-18.0); Immature Granulocytes % 3.9 %; Immature Granulocytes Absolute 0.47 #; Lymphocytes # 1.3 10*3/uL (1.4-4.0); Lymphocytes % 10.5 % (21.2-54.2); Mean Corpuscular HGB Conc 31.1 GM/DL (32-36); Mean Platelet Volume 12.8 FL (9.6-12.0); Monocytes % 5.5 % (1.7-12.7); Neutrophils % 77.9 % (38.7-73.9); Platelet Count 186 T/CUMM (130-400); Red Blood Count 2.71 MC/CUMM (3.8-5.5); Red Cell Distribution Width 18.2 % (9.3-17.3)
[2019-02-05 06:24] LABS: Bilirubin,Total 2.9 MG/DL (0.2-1.0); Calcium 7.5 MG/DL (8.5-10.1); Osmolality,Calculated 319.4 MOS/KG (273-304); Total Protein 5.1 G/DL (6.4-8.3)
[2019-02-05] MEDS: SODIUM HYPOCHLORITE 0.25% IRRIG 473 ML BOTTLE TOP SCH (09:56)
[2019-02-05] MEDS: MORPHINE 4 MG/1 ML VIAL IV PRN (17:20)
[2019-02-06] MEDS: INSULIN REGULAR 100 UNIT/ML SUBCUT SCH ×5 (00:40→23:26)
[2019-02-06] MEDS: MEROPENEM 500 MG in SODIUM CHLORIDE 0.9% 100 ML IV SCH ×3 (02:36→18:00)
[2019-02-06] MEDS: DEXTROSE 10% 1,000 ML IV SCH ×3 (03:12→14:10)
[2019-02-06 06:27] LABS: Prealbumin 9.1 MG/DL (20-40)
[2019-02-06 06:38] LABS: Bilirubin,Total 2.2 MG/DL (0.2-1.0); Calcium 7.6 MG/DL (8.5-10.1); Osmolality,Calculated 314.6 MOS/KG (273-304)
[2019-02-06 09:44] LABS: Basophils # 0.1 10*3/uL (0.0-0.2); Basophils % 0.6 % (0.0-0.8); Eosinophils # 0.3 10*3/uL (0.0-0.87); Eosinophils % 2.1 % (0.00-10.9); Hematocrit 24.2 VOL% (42.0-52.0); Hemoglobin 7.5 GM/DL (14.0-18.0); Immature Granulocytes % 3.4 %; Immature Granulocytes Absolute 0.42 #; Lymphocytes # 1.5 10*3/uL (1.4-4.0); Mean Corpuscular Volume 91.7 FL (87-102); Mean Platelet Volume 11.8 FL (9.6-12.0); Monocytes % 5.2 % (1.7-12.7); Neutrophils % 76.7 % (38.7-73.9); Platelet Count 211 T/CUMM (130-400); Red Blood Count 2.64 MC/CUMM (3.8-5.5); Red Cell Distribution Width 17.9 % (9.3-17.3); White Blood Count 12.5 T/CUMM (4-12)
[2019-02-06] MEDS: SODIUM HYPOCHLORITE 0.25% IRRIG 473 ML BOTTLE TOP SCH (09:52)
[2019-02-07] MEDS: MEROPENEM 500 MG in SODIUM CHLORIDE 0.9% 100 ML IV SCH ×3 (01:43→16:53)
[2019-02-07] MEDS: MORPHINE 4 MG/1 ML VIAL IV PRN ×2 (04:28→20:15)
[2019-02-07] MEDS: DEXTROSE 10% 1,000 ML IV SCH (04:32)
[2019-02-07] MEDS: INSULIN REGULAR 100 UNIT/ML SUBCUT SCH ×3 (06:14→17:23)
[2019-02-07 06:33] LABS: Bilirubin,Total 2.1 MG/DL (0.2-1.0); Calcium 7.7 MG/DL (8.5-10.1); Total Protein 4.9 G/DL (6.4-8.3)
[2019-02-07 06:53] LABS: Basophils # 0.1 10*3/uL (0.0-0.2); Basophils % 0.6 % (0.0-0.8); Eosinophils # 0.2 10*3/uL (0.0-0.87); Eosinophils % 2.1 % (0.00-10.9); Hematocrit 21.1 VOL% (42.0-52.0); Immature Granulocytes % 3.7 %; Immature Granulocytes Absolute 0.41 #; Lymphocytes # 1.4 10*3/uL (1.4-4.0); Mean Corpuscular HGB Conc 30.8 GM/DL (32-36); Mean Platelet Volume 11.8 FL (9.6-12.0); Neutrophils % 75.6 % (38.7-73.9); Red Blood Count 2.27 MC/CUMM (3.8-5.5); Red Cell Distribution Width 18.1 % (9.3-17.3); White Blood Count 11.2 T/CUMM (4-12)
[2019-02-07 06:55] LABS: Hemoglobin 6.5 GM/DL (14.0-18.0); Platelet Count 152 T/CUMM (130-400)
[2019-02-07] MEDS ORDERED: SODIUM CHLORIDE 0.9% 1,000 ML IV PRN ×2 (08:07→11:53)
[2019-02-07] MEDS: SODIUM HYPOCHLORITE 0.25% IRRIG 473 ML BOTTLE TOP SCH (08:53)
[2019-02-07] MEDS ORDERED: INSULIN GLARGINE 100 UNIT/ML SUBCUT SCH (09:00)
[2019-02-07] MEDS: FUROSEMIDE 20 MG/2 ML VIAL IV PRN ×2 (13:05→16:51)
[2019-02-07] MEDS: POLYETHYLENE GLYCOL POWDER 17 GM PACK PO SCH ×2 (13:08→20:15)
[2019-02-07 14:41] LABS: Mitochondrial Antibody (M2) <0.1 U
[2019-02-07] MEDS: amLODIPine 5 MG TABLET PO SCH (15:52)
[2019-02-07 19:17] LABS: Hematocrit 28.1 VOL% (42.0-52.0)
[2019-02-07 19:18] LABS: Hemoglobin 8.9 GM/DL (14.0-18.0)
[2019-02-08] MEDS: MEROPENEM 500 MG in SODIUM CHLORIDE 0.9% 100 ML IV SCH ×3 (01:13→16:05)
[2019-02-08] MEDS: INSULIN REGULAR 100 UNIT/ML SUBCUT SCH ×4 (03:02→19:29)
[2019-02-08 05:33] LABS: Basophils # 0.1 10*3/uL (0.0-0.2); Basophils % 0.7 % (0.0-0.8); Eosinophils # 0.2 10*3/uL (0.0-0.87); Eosinophils % 1.4 % (0.00-10.9); Hematocrit 26.7 VOL% (42.0-52.0); Hemoglobin 8.4 GM/DL (14.0-18.0); Immature Granulocytes % 3.5 %; Immature Granulocytes Absolute 0.37 #; Lymphocytes # 1.3 10*3/uL (1.4-4.0); Lymphocytes % 12.2 % (21.2-54.2); Mean Corpuscular HGB Conc 31.5 GM/DL (32-36); Mean Corpuscular Volume 90.8 FL (87-102); Mean Platelet Volume 11.7 FL (9.6-12.0); Monocytes % 6.6 % (1.7-12.7); Neutrophils % 75.6 % (38.7-73.9); Platelet Count 179 T/CUMM (130-400); Red Blood Count 2.94 MC/CUMM (3.8-5.5); Red Cell Distribution Width 17.6 % (9.3-17.3); White Blood Count 10.6 T/CUMM (4-12)
[2019-02-08] MEDS: amLODIPine 5 MG TABLET PO SCH (08:57)
[2019-02-08] MEDS: SODIUM HYPOCHLORITE 0.25% IRRIG 473 ML BOTTLE TOP SCH (08:58)
[2019-02-08] MEDS: POLYETHYLENE GLYCOL POWDER 17 GM PACK PO SCH ×2 (08:58→22:07)
[2019-02-08] MEDS ORDERED: INSULIN GLARGINE 100 UNIT/ML SUBCUT SCH (09:00)
[2019-02-08] MEDS: FUROSEMIDE 40 MG/4 ML VIAL IV SCH ×2 (11:09→16:06)
[2019-02-08] MEDS: MORPHINE 4 MG/1 ML VIAL IV PRN ×2 (11:10→16:05)
[2019-02-08] MEDS ORDERED: TUBERCULIN SKIN TEST 0.1 ML SYRINGE INTRADERM ONE (13:00)
[2019-02-09] MEDS: INSULIN REGULAR 100 UNIT/ML SUBCUT SCH ×4 (01:11→19:28)
[2019-02-09] MEDS: MEROPENEM 500 MG in SODIUM CHLORIDE 0.9% 100 ML IV SCH ×3 (01:12→17:21)
[2019-02-09 05:44] LABS: Basophils # 0.1 10*3/uL (0.0-0.2); Basophils % 0.8 % (0.0-0.8); Eosinophils # 0.3 10*3/uL (0.0-0.87); Eosinophils % 3.2 % (0.00-10.9); Hematocrit 25.6 VOL% (42.0-52.0); Hemoglobin 8.2 GM/DL (14.0-18.0); Immature Granulocytes % 2.1 %; Immature Granulocytes Absolute 0.19 #; Lymphocytes # 1.4 10*3/uL (1.4-4.0); Lymphocytes % 15.5 % (21.2-54.2); Mean Corpuscular Volume 91.4 FL (87-102); Mean Platelet Volume 11.4 FL (9.6-12.0); Monocytes % 8.5 % (1.7-12.7); Neutrophils % 69.9 % (38.7-73.9); Platelet Count 217 T/CUMM (130-400)
[2019-02-09 06:09] LABS: Albumin 1.2 G/DL (3.4-5.0); Bilirubin,Total 2.4 MG/DL (0.2-1.0); Osmolality,Calculated 298.8 MOS/KG (273-304); Total Protein 5.3 G/DL (6.4-8.3)
[2019-02-09] MEDS: FUROSEMIDE 40 MG/4 ML VIAL IV SCH (09:40)
[2019-02-09] MEDS: SODIUM HYPOCHLORITE 0.25% IRRIG 473 ML BOTTLE TOP SCH (09:41)
[2019-02-09] MEDS: MORPHINE 4 MG/1 ML VIAL IV PRN ×2 (10:04→21:40)
[2019-02-09] MEDS: amLODIPine 5 MG TABLET PO SCH (10:20)
[2019-02-09] MEDS: POLYETHYLENE GLYCOL POWDER 17 GM PACK PO SCH ×2 (10:38→21:29)
[2019-02-09 13:11] LABS: Bone % 5.6 % (19.1-67.7); LIVER 1 % 55.4 % (27.8-76.3)
[2019-02-09] MEDS: COLLAGENASE OINT 30 GM TUBE TOP SCH (17:22)
[2019-02-10] MEDS: INSULIN REGULAR 100 UNIT/ML SUBCUT SCH ×4 (01:05→18:48)
[2019-02-10] MEDS: MEROPENEM 500 MG in SODIUM CHLORIDE 0.9% 100 ML IV SCH (01:57)
[2019-02-10 06:06] LABS: Basophils # 0.1 10*3/uL (0.0-0.2); Basophils % 0.9 % (0.0-0.8); Eosinophils # 0.3 10*3/uL (0.0-0.87); Eosinophils % 3.1 % (0.00-10.9); Hematocrit 27.6 VOL% (42.0-52.0); Hemoglobin 8.6 GM/DL (14.0-18.0); Immature Granulocytes % 1.6 %; Immature Granulocytes Absolute 0.14 #; Lymphocytes # 1.4 10*3/uL (1.4-4.0); Lymphocytes % 16.7 % (21.2-54.2); Mean Corpuscular HGB Conc 31.2 GM/DL (32-36); Mean Corpuscular Volume 92.3 FL (87-102); Monocytes % 8.5 % (1.7-12.7); Neutrophils % 69.2 % (38.7-73.9); Platelet Count 225 T/CUMM (130-400); Red Blood Count 2.99 MC/CUMM (3.8-5.5); Red Cell Distribution Width 17.7 % (9.3-17.3); White Blood Count 8.5 T/CUMM (4-12)
[2019-02-10 06:28] LABS: Calcium 8.2 MG/DL (8.5-10.1); Osmolality,Calculated 291.3 MOS/KG (273-304)
[2019-02-10] MEDS: MORPHINE 4 MG/1 ML VIAL IV PRN ×2 (07:32→22:50)
[2019-02-10] MEDS: amLODIPine 5 MG TABLET PO SCH (08:14)
[2019-02-10] MEDS: AMOXICILLIN/CLAV 875 MG TABLET PO SCH ×2 (08:14→20:22)
[2019-02-10] MEDS: COLLAGENASE OINT 30 GM TUBE TOP SCH (08:31)
[2019-02-10] MEDS: SODIUM HYPOCHLORITE 0.25% IRRIG 473 ML BOTTLE TOP SCH (08:32)
[2019-02-10] MEDS: POLYETHYLENE GLYCOL POWDER 17 GM PACK PO SCH ×2 (09:37→20:22)
[2019-02-11] MEDS: INSULIN REGULAR 100 UNIT/ML SUBCUT SCH ×4 (00:09→17:44)
[2019-02-11] MEDS: MORPHINE 4 MG/1 ML VIAL IV PRN ×3 (07:43→23:02)
[2019-02-11] MEDS: amLODIPine 5 MG TABLET PO SCH (09:20)
[2019-02-11] MEDS: AMOXICILLIN/CLAV 875 MG TABLET PO SCH ×2 (09:20→20:23)
[2019-02-11] MEDS: POLYETHYLENE GLYCOL POWDER 17 GM PACK PO SCH ×2 (09:20→20:26)
[2019-02-11] MEDS: COLLAGENASE OINT 30 GM TUBE TOP SCH (09:20)
[2019-02-11] MEDS: SODIUM HYPOCHLORITE 0.25% IRRIG 473 ML BOTTLE TOP SCH (09:20)
[2019-02-12] MEDS: INSULIN REGULAR 100 UNIT/ML SUBCUT SCH ×4 (00:04→18:20)
[2019-02-12] MEDS: MORPHINE 4 MG/1 ML VIAL IV PRN ×3 (07:48→17:48)
[2019-02-12] MEDS: amLODIPine 5 MG TABLET PO SCH (08:00)
[2019-02-12] MEDS: SODIUM HYPOCHLORITE 0.25% IRRIG 473 ML BOTTLE TOP SCH (08:00)
[2019-02-12] MEDS: AMOXICILLIN/CLAV 875 MG TABLET PO SCH ×2 (08:00→21:07)
[2019-02-12] MEDS: POLYETHYLENE GLYCOL POWDER 17 GM PACK PO SCH ×2 (08:03→21:09)
[2019-02-12] MEDS: COLLAGENASE OINT 30 GM TUBE TOP SCH (08:03)
[2019-02-13] MEDS: INSULIN REGULAR 100 UNIT/ML SUBCUT SCH ×5 (01:26→23:50)
[2019-02-13] MEDS: amLODIPine 5 MG TABLET PO SCH (08:45)
[2019-02-13] MEDS: SODIUM HYPOCHLORITE 0.25% IRRIG 473 ML BOTTLE TOP SCH (08:46)
[2019-02-13] MEDS: COLLAGENASE OINT 30 GM TUBE TOP SCH (08:46)
[2019-02-13] MEDS: AMOXICILLIN/CLAV 875 MG TABLET PO SCH ×2 (08:46→20:51)
[2019-02-13] MEDS: POLYETHYLENE GLYCOL POWDER 17 GM PACK PO SCH ×2 (08:46→20:52)
[2019-02-13 09:51] LABS: Basophils # 0.1 10*3/uL (0.0-0.2); Basophils % 1.1 % (0.0-0.8); Eosinophils # 0.3 10*3/uL (0.0-0.87); Eosinophils % 3.3 % (0.00-10.9); Hematocrit 27.7 VOL% (42.0-52.0); Hemoglobin 8.5 GM/DL (14.0-18.0); Immature Granulocytes % 1.1 %; Immature Granulocytes Absolute 0.09 #; Lymphocytes # 1.4 10*3/uL (1.4-4.0); Lymphocytes % 16.6 % (21.2-54.2); Mean Corpuscular HGB Conc 30.7 GM/DL (32-36); Mean Corpuscular Volume 95.2 FL (87-102); Mean Platelet Volume 10.8 FL (9.6-12.0); Monocytes % 6.8 % (1.7-12.7); Neutrophils % 71.1 % (38.7-73.9); Platelet Count 264 T/CUMM (130-400); Red Blood Count 2.91 MC/CUMM (3.8-5.5); Red Cell Distribution Width 17.5 % (9.3-17.3); White Blood Count 8.1 T/CUMM (4-12)
[2019-02-13 10:13] LABS: Osmolality,Calculated 290.3 MOS/KG (273-304)
[2019-02-13] MEDS: MENTHOL/ZINC OXIDE OINT 71 GM JAR TOP SCH (20:51)
[2019-02-14] MEDS: INSULIN REGULAR 100 UNIT/ML SUBCUT SCH ×3 (06:20→17:34)
[2019-02-14] MEDS: AMOXICILLIN/CLAV 875 MG TABLET PO SCH ×2 (09:22→20:26)
[2019-02-14] MEDS: POLYETHYLENE GLYCOL POWDER 17 GM PACK PO SCH ×2 (09:22→20:26)
[2019-02-14] MEDS: SODIUM HYPOCHLORITE 0.25% IRRIG 473 ML BOTTLE TOP SCH (09:22)
[2019-02-14] MEDS: MENTHOL/ZINC OXIDE OINT 71 GM JAR TOP SCH ×2 (09:22→20:26)
[2019-02-14] MEDS: amLODIPine 5 MG TABLET PO SCH (09:22)
[2019-02-14] MEDS: COLLAGENASE OINT 30 GM TUBE TOP SCH (09:23)
[2019-02-15] MEDS: INSULIN REGULAR 100 UNIT/ML SUBCUT SCH ×4 (01:05→18:37)
[2019-02-15] MEDS: MENTHOL/ZINC OXIDE OINT 71 GM JAR TOP SCH ×2 (09:27→20:08)
[2019-02-15] MEDS: AMOXICILLIN/CLAV 875 MG TABLET PO SCH ×2 (09:27→20:08)
[2019-02-15] MEDS: amLODIPine 5 MG TABLET PO SCH (09:27)
[2019-02-15] MEDS: SODIUM HYPOCHLORITE 0.25% IRRIG 473 ML BOTTLE TOP SCH (09:28)
[2019-02-15] MEDS: COLLAGENASE OINT 30 GM TUBE TOP SCH (09:28)
[2019-02-15] MEDS: POLYETHYLENE GLYCOL POWDER 17 GM PACK PO SCH ×2 (09:28→20:08)
[2019-02-16] MEDS: INSULIN REGULAR 100 UNIT/ML SUBCUT SCH ×4 (01:05→18:52)
[2019-02-16] MEDS: AMOXICILLIN/CLAV 875 MG TABLET PO SCH ×2 (09:00→20:29)
[2019-02-16] MEDS: amLODIPine 5 MG TABLET PO SCH (09:00)
[2019-02-16] MEDS: POLYETHYLENE GLYCOL POWDER 17 GM PACK PO SCH ×2 (09:01→20:32)
[2019-02-16] MEDS: SODIUM HYPOCHLORITE 0.25% IRRIG 473 ML BOTTLE TOP SCH (11:04)
[2019-02-16] MEDS: MENTHOL/ZINC OXIDE OINT 71 GM JAR TOP SCH ×2 (11:04→20:30)
[2019-02-16] MEDS: COLLAGENASE OINT 30 GM TUBE TOP SCH (11:04)
[2019-02-17] MEDS: INSULIN REGULAR 100 UNIT/ML SUBCUT SCH ×3 (01:22→11:45)
[2019-02-17 06:52] LABS: Basophils # 0.1 10*3/uL (0.0-0.2); Basophils % 1.3 % (0.0-0.8); Eosinophils # 0.3 10*3/uL (0.0-0.87); Eosinophils % 4.8 % (0.00-10.9); Hematocrit 29.2 VOL% (42.0-52.0); Immature Granulocytes % 0.6 %; Immature Granulocytes Absolute 0.04 #; Lymphocytes # 1.9 10*3/uL (1.4-4.0); Lymphocytes % 30.6 % (21.2-54.2); Mean Corpuscular HGB Conc 30.8 GM/DL (32-36); Mean Corpuscular Volume 93.6 FL (87-102); Mean Platelet Volume 10.9 FL (9.6-12.0); Monocytes % 7.1 % (1.7-12.7); Neutrophils % 55.6 % (38.7-73.9); Platelet Count 237 T/CUMM (130-400); Red Blood Count 3.12 MC/CUMM (3.8-5.5); Red Cell Distribution Width 16.5 % (9.3-17.3); White Blood Count 6.2 T/CUMM (4-12)
[2019-02-17 07:24] LABS: Calcium 8.8 MG/DL (8.5-10.1); Osmolality,Calculated 292.8 MOS/KG (273-304)
[2019-02-17] MEDS: amLODIPine 5 MG TABLET PO SCH (08:53)
[2019-02-17] MEDS: AMOXICILLIN/CLAV 875 MG TABLET PO SCH (08:53)
[2019-02-17] MEDS: POLYETHYLENE GLYCOL POWDER 17 GM PACK PO SCH (08:55)
[2019-02-17] MEDS: MENTHOL/ZINC OXIDE OINT 71 GM JAR TOP SCH (11:05)
[2019-02-17] MEDS: COLLAGENASE OINT 30 GM TUBE TOP SCH (11:06)
[2019-02-17] MEDS: SODIUM HYPOCHLORITE 0.25% IRRIG 473 ML BOTTLE TOP SCH (11:06)
[2019-02-17 11:46] VITALS: BP 159/82
== END 2019-02-17 11:52 | DRG 853 ==
LOC: N.ED 20:08 → N.EDINP 01-27 05:55 → SUATTDRO 01-27 05:55 → N.2E 01-27 08:19 → N.ICU 01-31 10:47 → N.2E 02-03 12:48
PROVIDERS: ADMIT Internal Medicine; ATTEND Internal Medicine